=== PATIENT | male | born 1995 | race Caucasian/White ===

== ENCOUNTER 2018-02-17 16:35 | Emergency (ER) | payer OTHER ==
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
[2018-02-17 18:58] VITALS: BP 134/83
== END 2018-02-17 18:56 | disposition home or self-care (01) ==
LOC: ER 16:53
DX: S01.01XA Laceration without foreign body of scalp, initial encounter (principal); S16.1XXA Strain of muscle, fascia and tendon at neck level, initial encounter; S39.012A Strain of muscle, fascia and tendon of lower back, initial encounter; V86.95XA Unspecified occupant of 3- or 4- wheeled all-terrain vehicle (ATV) injured in nontraffic accident, initial encounter
CPT/HCPCS: 70450; 72125; 72131; 99284